=== PATIENT | female | born 1955 | race Caucasian/White ===

== ENCOUNTER → 2016-10-02 | Outpatient (CLI) | payer OTHER ==
--- NOTE | 2016-10-02 16:14 | MA ---
Screening Digital Mammogram Clinical Indications: Routine screening. Technique: Standard cephalocaudal and mediolateral oblique projections were obtained. This examinat ion was processed by the [employer] computer aided detection system. Comparison: September 2015, August 2014, 2013, 2012 and 2011. Breast density: D; The breast tissue is extremely dense. This may lower the sensitivity of mammograph y. Findings: CAD was reviewed. No suspicious findings are identified. Impression: Negative mammogram. BI-RADS 1. Recommendation: Routine screening is recommended in one year, as long as physical examination is good ign in this patient with extremely dense breast parenchyma. [facility] will send a result letter to the patient. Negative mammography should not preclude additional workup of a clinically suspicious finding. The patient's information is entered into a reminder system with a target due date for her next mammo gram.
== END ==
LOC: CIMAGING 14:29
DX: Z12.31 Encounter for screening mammogram for malignant neoplasm of breast (principal)
CPT/HCPCS: G0202

== ENCOUNTER → 2017-10-18 | Outpatient (CLI) | payer OTHER | LOC: CIMAGING 11:15 | DX: Z12.31 Encounter for screening mammogram for malignant neoplasm of breast (principal) ==

== ENCOUNTER → 2018-11-08 | Outpatient (CLI) | payer OTHER, MEDICARE | LOC: CIMAGING 12:53 | DX: Z12.31 Encounter for screening mammogram for malignant neoplasm of breast (principal) ==